=== PATIENT | male | born 1950 ===

== ENCOUNTER 2017-08-16 11:05 | Outpatient (CLI) | payer MEDICARE, OTHER ==
--- NOTE | 2017-08-16 19:35 | Diagnostic Imaging Report ---
Clinical Indication: Reason For Exam: PAIN Technique: Spiral acquisition obtained through the chest. No IV contrast utilized, per high resolution protocol. Axial 5 x 5 mm slices were reconstructed. Axial 1 mm thick slices were reconstructed using high resolution algorithm at 10 mm intervals. Multiplanar reconstructions generated. Total dose length product 620.8 mGycm. CTDIvol(s) 16.29 mGy. Dose reduction achieved using automated exposure control Comparison: none Findings: There is mild paraseptal emphysema in the bilateral apices, right greater than left. There is a subpleural bleb in the medial posterior left upper lobe which measures 1.1 x 1.4 cm (series 9 image 21). No evidence of honeycombing/fibrosis. There is no focal airspace consolidation suggest pneumonia. No pleural effusion or pneumothorax. Heart is borderline enlarged. There is no pericardial effusion. There are coronary arterial calcifications. Small mediastinal and axillary lymph nodes are noted, none of which are pathologically enlarged by imaging size criteria. Thyroid is grossly unremarkable. Thoracic aorta is normal in caliber with mild calcification of the arch. Main pulmonary artery is normal in size. There is interposition of portions of the colon anterior to the liver. Imaged portions of the liver, gallbladder, spleen, adrenal glands and pancreas are grossly unremarkable. Abdominal aorta is normal in caliber with mild atherosclerotic calcification. There is mild S-shaped scoliosis of the spine. No acute osseous abnormality seen. IMPRESSION: Mild paraseptal emphysema. 1.4 cm subpleural bleb in the medial left upper lobe. No pneumothorax. No evidence of honeycombing. Coronary artery disease. Additional findings as above. The CT scanner at [facility] is accredited by the [employer] and the scans are performed using protocols designed to limit radiation exposure to as low as reasonably achievable to attain images of sufficient resolution adequate for diagnostic evaluation.
== END 2017-08-16 13:05 | disposition home or self-care (01) ==
LOC: CAT 11:05
DX: R07.9 Chest pain, unspecified (principal); R05 Cough; I25.10 Atherosclerotic heart disease of native coronary artery without angina pectoris; J43.9 Emphysema, unspecified; M41.9 Scoliosis, unspecified
CPT/HCPCS: 71250